=== PATIENT | male | born 1940 | race Caucasian/White ===

== ENCOUNTER 2017-05-26 19:27 | Emergency (ER) | payer MEDICARE, BC ==
[2017-05-26 19:43] VITALS: BP 175/70
--- NOTE | 2017-05-26 20:19 | EDM.PDOC ---
ED HPI GENERAL MEDICAL PROBLEM - General Chief Complaint: Genitourinary Problem Stated Complaint: UTI Time Seen by Provider: 05/26/17 20:00 Source of Information: Reports: Patient, Old Records, RN History Limitations: Reports: No Limitations - History of Present Illness INITIAL COMMENTS - FREE TEXT/NARRATIVE: 77 yo male presents with a possible UTI. Has a pHx of recurrent UTI's. Is being tx'd for BPH with Flomax. No fever. Is going often with some dysuria. Onset: Gradual Onset Date: 05/24/17 Duration: Day(s):, Getting Worse Location: Reports: Abdomen (bladder) Quality: Reports: Burning Severity: Moderate Improves with: Reports: None Worsens with: Reports: Other (? time) Context: Reports: Other (hx of BPH and prostate CA) Associated Symptoms: Reports: Other (hematuria). 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: Other (see below) (none) UTI Pain Score (Numeric/FACES): 10 - Related Data Allergies Allergy/AdvReac Type Severity Reaction Status Date / Time No Known Allergies Allergy Verified 05/26/17 19:46 Home Meds: Home Meds Lisinopril 10 mg PO DAILY 07/15/15 [History] Tamsulosin [Flomax] 0.8 mg PO BEDTIME 07/15/15 [History] atorvaSTATin [Lipitor] 20 mg PO BEDTIME 07/15/15 [History] Past Medical History HEENT History: Reports: Cataract, Hard of Hearing, Impaired Vision Cardiovascular History: Reports: High Cholesterol, Hypertension Gastrointestinal History: Reports: Chronic Diarrhea Genitourinary History: Reports: Prostate Disorder, Urinary Incontinence, UTI, Recurrent, Other (See Below) Other Genitourinary History: Prostate CA Musculoskeletal History: Reports: Fracture Oncologic (Cancer) History: Reports: Prostate - Infectious Disease History Infectious Disease History: Reports: Chicken Pox - Past Surgical History HEENT Surgical History: Reports: Cataract Surgery, Tonsillectomy GI Surgical History: Reports: Appendectomy Male Surgical History: Reports: TURP-Transurethral Resection of Prostate Musculoskeletal Surgical History: Reports: Hip Replacement, Other (See Below) Other Musculoskeletal Surgeries/Procedures:: bilateral hip replacement surgery Social & Family History - Tobacco Use Smoking Status *Q: Light Tobacco Smoker Years of Tobacco use: 50 Packs/Tins Daily: 0.5 - Caffeine Use Caffeine Use: Reports: Coffee - Alcohol Use Days Per Week of Alcohol Use: 7 Number of Drinks Per Day: 3 Total Drinks Per Week: 21 - Recreational Drug Use Recreational Drug Use: No ED ROS GENERAL - Review of Systems Review Of Systems: See Below Constitutional: Reports: No Symptoms Respiratory: Reports: No Symptoms Cardiovascular: Reports: No Symptoms GI/Abdominal: Reports: No Symptoms : Reports: Dysuria, Frequency, Hematuria, Urgency. Denies: Flank Pain Musculoskeletal: Reports: No Symptoms Skin: Reports: No Symptoms Neurological: Reports: No Symptoms ED EXAM, RENAL/ - Physical Exam Exam: See Below Exam Limited By: No Limitations General Appearance: Alert, WD/WN, No Apparent Distress Eye Exam: Bilateral Eye: Normal Inspection Ears: Normal External Exam, Normal Canal, Hearing Grossly Normal, Normal TMs Nose: Normal Inspection, No Blood Throat/Mouth: Normal Inspection, Normal Lips, Normal Oropharynx, Normal Voice, No Airway Compromise Head: Atraumatic, Normocephalic Respiratory/Chest: No Respiratory Distress, Lungs Clear, Normal Breath Sounds, No Accessory Muscle Use Cardiovascular: Regular Rate, Rhythm, No Edema GI/Abdominal: Normal Bowel Sounds, Soft, No Distention, Other (mild suprapubic abdominal tenderness.) Back Exam: Normal Inspection. No: CVA Tenderness (R), CVA Tenderness (L) Extremities: Normal Inspection, Normal Range of Motion, Non-Tender, No Pedal Edema Neurological: Alert, Oriented, CN II-XII Intact, Normal Cognition, No Motor/ Sensory Deficits Psychiatric: Normal Affect, Normal Mood Skin Exam: Warm, Dry, Intact, Normal Color, No Rash Course - Vital Signs Text/Narrative:: Bladder scan post-void= 57 ml Last Recorded V/S: Last Vital Signs Temp 36.3 C 05/26/17 19:59 Pulse 46 L 05/26/17 19:59 Resp 16 05/26/17 19:59 BP 175/70 H 05/26/17 19:59 Pulse Ox 98 05/26/17 19:59 - Orders/Labs/Meds Orders: Active Orders 24 hr Category Date Time Status CULTURE URINE [RM] Stat Lab 05/26/17 20:19 Ordered Ciprofloxacin [Ciprofloxacin HCl] Med 05/26/17 20:27 Once 500 mg PO ONETIME ONE Labs: Laboratory Tests 05/26/17 Range/Units 20:05 Urine Color Yellow Urine Appearance Turbid Urine pH 6.0 (4.5-8.0) Ur Specific [place] 1.020 (1.008-1.030) Urine Protein 500 H (NEGATIVE) mg/dL Urine Glucose (UA) 50 H (NEGATIVE) mg/dL Urine Ketones Negative (NEGATIVE) mg/dL Urine Occult Blood Large (NEGATIVE) Urine Nitrite Negative (NEGAITVE) Urine Bilirubin Negative (NEGATIVE) Urine Urobilinogen Normal (NORMAL) mg/dL Ur Leukocyte Esterase Negative (NEGATIVE) Urine RBC Packed H (0-5) Urine WBC 0-5 (0-5) Ur Epithelial Cells Few Urine Bacteria Rare Urine Mucus Not seen Meds: Medications Discontinued Medications Generic Name Dose Route Start Last Admin Trade Name Freq PRN Reason Stop Dose Admin Phenazopyridine HCl 190 mg 05/26/17 20:27 Urinary Pain Relief PO 05/26/17 20:28 ONETIME ONE Departure - Departure Time of Disposition: 20:40 Disposition: Home, Self-Care 01 Condition: Good Clinical Impression: Dysuria Hematuria Qualifiers: Hematuria type: unspecified type Qualified Code(s): R31.9 - Hematuria, unspecified - Discharge Information Referrals: PCP,None [Primary Care Provider] - Forms: ED Department Discharge - My Orders Last 24 Hours: My Active Orders 05/26/17 20:19 CULTURE URINE [RM] Stat 05/26/17 20:27 Ciprofloxacin [Ciprofloxacin HCl] 500 mg PO ONETIME ONE - Assessment/Plan Last 24 Hours: My Active Orders 05/26/17 20:19 CULTURE URINE [RM] Stat 05/26/17 20:27 Ciprofloxacin [Ciprofloxacin HCl] 500 mg PO ONETIME ONE
[2017-05-26] MEDS ORDERED: Ciprofloxacin 500 MG Tab PO ONE (20:27)
[2017-05-26] MEDS ORDERED: Phenazopyridine 95 MG Tab PO ONE (20:27)
== END 2017-05-26 21:10 | disposition home or self-care (01) ==
LOC: JP.ED 19:27
DX: R31.9 Hematuria, unspecified (principal); E78.00 Pure hypercholesterolemia, unspecified; I10 Essential (primary) hypertension; F17.210 Nicotine dependence, cigarettes, uncomplicated
CPT/HCPCS: 51798; 81001; 87086; 99284; A9270; 99283